=== PATIENT | male | born 1990 | race Caucasian/White ===

== ENCOUNTER 2023-02-09 12:55 | Emergency (ER) | payer OTHER ==
[~2023-02-09] VITALS: Ht 177.8 cm; Wt 74.8 kg
[2023-02-09 13:32] VITALS: BP 138/96
[2023-02-10] MEDS ORDERED: RISP1 PO (03:07)
== END 2023-02-09 14:32 | disposition left against medical advice (07) ==
LOC: ER 12:55
DX: Z53.21 Procedure and treatment not carried out due to patient leaving prior to being seen by health care provider (principal)

== ENCOUNTER 2023-02-10 02:19 | Emergency (ER) | payer OTHER ==
[~2023-02-10] VITALS: Ht 172.7 cm; Wt 63.5 kg
[2023-02-10 02:26] VITALS: BP 153/106
[2023-02-10] MEDS ORDERED: RISP1 PO (03:07)
== END 2023-02-10 03:11 | disposition home or self-care (01) ==
LOC: ER 02:19
DX: F20.9 Schizophrenia, unspecified (principal)
CPT/HCPCS: 99284; A9270